=== PATIENT | female | born 1945 | race Caucasian/White ===

== ENCOUNTER → 2024-04-10 11:39 | Outpatient (REF) | payer BC, SELFPAY ==
[2024-04-10 12:49] LABS: ALT (SGPT) 20 U/L (0-35); AST (SGOT) 27 U/L (14-36); Albumin 4.5 g/dl (3.5-5.0); Alkaline Phosphatase 83 U/L (38-126); Blood Urea Nitrogen 14 mg/dl (7-17); Calcium 9.7 mg/dl (8.4-10.2); Carbon Dioxide 32 mmol/L (22-30); Chloride 104 mmol/L (98-107); Glucose 100 mg/dl (70-99); HDL Cholesterol 76 mg/dl; LDL Cholesterol, Calculated 42 mg/dl; Potassium 5.1 mmol/L (3.5-5.1); Sodium 141 mmol/L (135-145); Total Bilirubin 0.8 mg/dl (0.2-1.3); Total Cholesterol 135 mg/dl (50-199); Triglyceride 85 mg/dl (10-149); Very Low Density Lipoprotein 17 mg/dl (0-30); eGFR > 60.00
[2024-04-10 13:17] LABS: Vitamin D, 25-OH*** 28.1 ng/mL (30-80)
== END ==
LOC: REG 11:39
PROVIDERS: ATTENDING PHYSICIAN Internal Medicine
DX: Z00.00 Encounter for general adult medical examination without abnormal findings (principal); M85.80 Other specified disorders of bone density and structure, unspecified site; I10 Essential (primary) hypertension; E78.5 Hyperlipidemia, unspecified
CPT/HCPCS: 36415; 80053; 80061; 82306

== ENCOUNTER → 2024-05-07 13:33 | Outpatient (REF) | payer BC, SELFPAY | LOC: HWRAD 13:33 | PROVIDERS: ATTENDING PHYSICIAN Internal Medicine Critical Care Medicine; FAMILY PHYSICIAN Internal Medicine | DX: R91.8 Other nonspecific abnormal finding of lung field (principal) | CPT/HCPCS: 71250 ==

== ENCOUNTER → 2024-09-13 16:27 | Outpatient (REF) | payer BC, SELFPAY | LOC: HWWDC 16:27 | PROVIDERS: ATTENDING PHYSICIAN Internal Medicine | DX: Z12.31 Encounter for screening mammogram for malignant neoplasm of breast (principal) | CPT/HCPCS: 77063; 77067 ==

== ENCOUNTER → 2024-10-15 12:26 | Outpatient (REF) | payer BC, SELFPAY ==
[2024-10-15 13:53] LABS: % Basophils 1.3 % (0-2); % Eosinophils 3.2 % (0-6); % Immature Granulocytes 0.2 % (0-0.5); % Lymphocytes 36.8 % (20.5-51.1); % Monocytes 10.1 % (1.7-9.3); % Neutrophils 48.4 % (42.2-75.2); Absolute Basophils 0.1 10^3/uL (0-0.2); Absolute Eosinophils 0.2 10^3/uL (0-0.7); Absolute Monocytes 0.5 10^3/uL (0.1-0.6); Absolute Neutrophils 2.6 10^3/uL (1.4-6.5); Hematocrit 38.8 % (37.0-47.0); Hemoglobin 12.8 g/dL (12.0-16.0); Mean Corpuscular Volume 90.9 fL (81.0-99.0); Mean Platelet Volume 10.8 fL (7.4-10.4); Nucleated Red Blood Cells % 0 %; Platelet Count 191 10^3/uL (130-400); Red Blood Cell Count 4.27 10^6/uL (4.20-5.40); Red Cell Dist. Width 13.7 % (11.5-14.5); White Blood Cell Count 5.4 10^3/uL (4.8-10.8)
[2024-10-15 14:25] LABS: Glycohemoglobin (HgbA1c) 5.7 % (4.0-5.6)
[2024-10-15 14:33] LABS: ALT (SGPT) 22 U/L (0-35); AST (SGOT) 28 U/L (14-36); Albumin 4.7 g/dl (3.5-5.0); Alkaline Phosphatase 81 U/L (38-126); Blood Urea Nitrogen 16 mg/dl (7-17); Calcium 9.5 mg/dl (8.4-10.2); Carbon Dioxide 27 mmol/L (22-30); Chloride 103 mmol/L (98-107); Glucose 109 mg/dl (70-99); HDL Cholesterol 79 mg/dl; LDL Cholesterol, Calculated 57 mg/dl; Potassium 4.6 mmol/L (3.5-5.1); Sodium 142 mmol/L (135-145); Total Bilirubin 0.7 mg/dl (0.2-1.3); Total Cholesterol 154 mg/dl (50-199); Total Protein 7.3 g/dl (6.3-8.2); Triglyceride 90 mg/dl (10-149); Very Low Density Lipoprotein 18 mg/dl (0-30); eGFR > 60.00
[2024-10-15 14:34] LABS: Vitamin D, 25-OH*** 37.1 ng/mL (30-80)
[2024-10-15 14:48] LABS: TSH Reflex To Free T4 1.77 uIU/ml (0.47-4.68)
== END ==
LOC: REG 12:26
PROVIDERS: ATTENDING PHYSICIAN Internal Medicine
DX: I10 Essential (primary) hypertension (principal); F41.9 Anxiety disorder, unspecified; F43.9 Reaction to severe stress, unspecified; E78.5 Hyperlipidemia, unspecified; G47.00 Insomnia, unspecified; R73.9 Hyperglycemia, unspecified; Z68.25 Body mass index [BMI] 25.0-25.9, adult
CPT/HCPCS: 36415; 80053; 80061; 82306; 83036; 84443; 85025

== ENCOUNTER → 2024-11-08 13:28 | Outpatient (REF) | payer BC, SELFPAY | LOC: RAD 13:28 | PROVIDERS: ATTENDING PHYSICIAN Internal Medicine | DX: R10.30 Lower abdominal pain, unspecified (principal) | CPT/HCPCS: 74177; Q9967 ==

== ENCOUNTER → 2025-02-04 12:53 | Outpatient (REF) | payer BC, SELFPAY | LOC: HWRAD 12:53 | PROVIDERS: ATTENDING PHYSICIAN Urology; FAMILY PHYSICIAN Internal Medicine | DX: R10.2 Pelvic and perineal pain (principal) | CPT/HCPCS: 76856 ==

== ENCOUNTER 2025-06-30 09:03 | Emergency (ER) | payer BC, SELFPAY ==
[2025-06-30 09:04] VITALS: BP 156/71
--- NOTE | 2025-06-30 09:15 | ED.GENMED ---
History of Present Illness
General
Chief Complaint: Ear Problem
Time Seen by Provider: 06/30/25 09:08
History of Present Illness
History of Present Illness:
80-year-old female presents to the emergency department for evaluation of right ear pain for the past 2 days, notes that it began 1 day after taking a bath and washing her ears out. She reports hearing loss as well with occasional dizziness. No
headache or fever. No nausea or vomiting.
Past History
Past History
ED Past Medical History: HTN and Hypercholesterolemia
Social History
Tobacco: Former smoker
Alcohol: None
Drug: None
Personal:
Living: with family
Review of Systems
Review of Systems
Allergies reviewed?: Yes
All Other Systems: ROS reviewed and negative except as documented in HPI and ROS
Phy Exam
Physical Exam
Physical Exam:
GEN: Well appearing, NAD, WDWN
HEENT: Oral mucosa moist, no scleral icterus. Right TM is occluded by cerumen however external auditory canal is grossly erythematous with no exudates. Left EAC is clear and tympanic membrane is clear with normal light reflex
Cardiac: Regular rate
Lung: No respiratory distress, no tachypnea
MSK: No gross deformity or injuries
Skin: Good color, no pallor or jaundice, no rashes
Neuro: AO x3, moves all extremities freely
Psych: Calm, cooperative
Course
Orders/Labs/Results
Orders:
Orders
06/30/25 09:14
Carbamide Peroxide [Debrox Ear Drops] See Dose Instructions OTIC NOW STA
Vital Signs
Initial and Last Documented VS:
Initial Vital Signs
Temp Pulse Resp BP Pulse Ox
97.8 F 68 16 156/71 98
06/30/25 09:04 06/30/25 09:04 06/30/25 09:04 06/30/25 09:04 06/30/25 09:04
Last Documented Vital Signs
Temp Pulse Resp BP Pulse Ox
97.8 F 68 16 156/71 98
06/30/25 09:04 06/30/25 09:04 06/30/25 09:04 06/30/25 09:04 06/30/25 09:15
MDM/Problems Addressed
MDM/Problems Addressed:
Patient with EAC erythema and significant tragal manipulation pain suggestive of otitis externa, she has a significant cerumen impaction and I am unable to visualize the tympanic membrane. Did attempt irrigation of the ear after application of
carbamide peroxide with no success. Will start her on topical antibiotics and refer her to ENT as an outpatient for follow-up evaluation
*Pulse Oximetry
SaO2: 98
Oxygen Mode of Delivery: Room air
Patient hypoxic: no
*Critical Care Note
Total Time (30-74mins, 75-104mins- exclusive of procedures): Not Applicable
ED Attending Note
-
Portions of this chart may have been created with voice recognition software.� Occasional wrong word or��sound alike� substitutions may have occurred due to the inherent limitations of voice recognition software.
Discharge Plan
Departure
Patient Disposition: Home (Routine Discharge)
Date of Disposition: 06/30/25
Time of Disposition: 10:09
Patient with high blood pressure during this ER visit?: No
Discharge Problem:
Cerumen impaction, Acute Otitis Externa
Instructions: Outer Ear Infection (DC)
Prescriptions:
New
ofloxacin 0.3 % drops
10 drp otic (ear) BID 7 Days Qty: 10 0RF
No Action
simvastatin 40 MG tablet
40 mg PO DAILY
lisinopril [Prinivil] 10 MG tablet
10 mg PO DAILY
zolpidem 5 MG tablet
5 mg PO HSPRN PRN (Reason: sleep)
duloxetine 20 MG capsule,delayed release(DR/EC)
20 mg PO DAILY
cholecalciferol (vitamin D3) [Vitamin D3] 2,000 UNIT capsule
2,000 unit PO DAILY
Referrals:
Nick Bush MD [Active, ENT]
Leena Lawrence NP [Family Provider, Internal Medicine]
Activity Restrictions/Additional Instructions:
Use the carbamide peroxide drops twice daily, 5 drops into the ear and lay on your side for 20 minutes. Ideally do not use the carbamide peroxide at the same time as the ofloxacin to avoid diminishing effects of combining the medicine. Follow-up
with your ENT specialist tomorrow
Interventions
Interventions:
*Risk Screen - Suicide Last Done: 06/30/25 09:04
*General Assessment Last Done: 06/30/25 09:24
*Neglect/Abuse Screening Last Done: 06/30/25 09:04
*ED- Fall Risk Assessment Last Done: 06/30/25 09:24
*ED COVID-19 Vaccine History Last Done: 06/30/25 09:24
*Nursing Disposition Last Done: 06/30/25 10:12
Discharge Date and Time
Discharge Date/Time: 06/30/25 10:12
Print Language: NAURUAN
[2025-06-30] MEDS: DEBROX EAR DROPS 1 DROP OTIC (09:22)
== END 2025-06-30 10:12 | disposition home or self-care (01) ==
LOC: EMR 09:03
PROVIDERS: EMERGENCY PHYSICIAN Emergency Medicine; FAMILY PHYSICIAN Internal Medicine
DX: H60.501 Unspecified acute noninfective otitis externa, right ear (principal); H61.21 Impacted cerumen, right ear; I10 Essential (primary) hypertension; E78.00 Pure hypercholesterolemia, unspecified; Z87.891 Personal history of nicotine dependence
CPT/HCPCS: 69209; 99283

== ENCOUNTER → 2025-10-25 14:37 | Outpatient (REF) | payer BC, SELFPAY | LOC: MRI 3T 14:37 | PROVIDERS: ATTENDING PHYSICIAN Urology; FAMILY PHYSICIAN Internal Medicine | DX: N32.9 Bladder disorder, unspecified (principal) | CPT/HCPCS: 72197; A9575 ==